=== PATIENT | female | born 1970 | race Caucasian/White ===

== ENCOUNTER 2018-08-15 14:11 | Emergency (ER) | payer BC, OTHER ==
[~2018-08-15] VITALS: Ht 152.4 cm; Wt 52.2 kg
[~2018-08-15 14:11] MED LIST: IBUPROFEN 600600 M1 PO
[2018-08-15 14:15] VITALS: BP 109/32
== END 2018-08-15 15:17 | disposition home or self-care (01) ==
LOC: ER 14:11
DX: S61.211A Laceration without foreign body of left index finger without damage to nail, initial encounter (principal); S61.213A Laceration without foreign body of left middle finger without damage to nail, initial encounter; W26.0XXA Contact with knife, initial encounter; Y93.89 Activity, other specified; Y92.89 Other specified places as the place of occurrence of the external cause; Y99.8 Other external cause status